=== PATIENT | male | born 1965 | race Caucasian/White ===

== ENCOUNTER 2023-07-30 22:36 | Observation (INO) | payer OTHER, SELFPAY ==
[2023-07-30 22:45] VITALS: BP 179/109; PULSE 81; RESP 16; TEMP 36.7; O2SAT 96; BMI 25.7
--- NOTE | 2023-07-30 22:54 | ED_ITS ---
HPI - Abdominal Pain General: Chief Complaint: Airway/Esophagus Foreign Body Stated Complaint: can't swallow Time Seen by Provider: 07/30/23 22:51 History of Present Illness: 58-year-old male patient comes in today with complaints of inability to swallow. About 5 hours prior to arrival to the ER patient was eating a piece of steak and it has felt like it has become lodged in his esophagus. Patient has a history of GERD, prior food boluses, and dilation of esophagus. Patient appears in no pain. Patient is managing secretions well. Patient states his only medication he takes routinely is omeprazole. Associated Symptoms: Reports other (Food bolus) Review of Systems GI: Reports: other (Food bolus) Physical Exam Const: COMMON NORMALS: alert HENMT: COMMON NORMALS: normocephalic HEAD & SCALP: normocephalic MOUTH: Normal oral and palatal mucosa present THROAT: posterior oropharynx normal Neck/C-Spine: COMMON NORMALS: full ROM Resp: COMMON NORMALS: normal respiratory effort and clear to auscultation bilaterally AUSCULTATION: clear to auscultation bilaterally Cardio: COMMON NORMALS: regular rate and regular rhythm RATE: regular rate RHYTHM: regular rhythm GI: COMMON NORMALS: Soft to palpation and non-tender PALPATION: Yes Soft to palpation Extremity: COMMON NORMALS: normal to inspection Neuro: SENSORIUM/ORIENTATION: Yes alert Skin: COMMON NORMALS: turgor normal GENERAL SKIN EXAM: turgor normal Course Vital Signs: Vital signs: Vital Signs Temperature 98.0 F 07/30/23 22:45 Pulse Rate 81 07/30/23 23:03 Respiratory Rate 16 07/30/23 23:03 Blood Pressure 144/106 07/30/23 23:03 Pulse Oximetry 97 07/30/23 23:03 Oxygen Delivery Me thod Room Air 07/30/23 23:03 MDM - Abdominal Pain Medical Decision Making 58-year-old male patient comes in today with complaints of food bolus. Approximately 5 hours prior to arrival to the ER patient was eating some steak and it became lodged in his esophagus. Patient has a history of repeated food boluses and esophageal dilation. Patient does take Meprazole routinely. Patient denies any other medical problems. Patient appears in no acute distress and is managing secretions well. Differential diagnosis includes food impaction, esophageal spasm, esophageal stricture, esophageal rupture. 2 view chest x-ray was unremarkable. Reviewed exam and patient with Dr. Barros, surgeon on-call he agreed to see patient in the morning request that we place patient in observation for until he can see him. Discussed this with Dr. Corbin, attending ER physician, who agreed to plan and treatment. Discharge Plan Discharge Patient Disposition: Placed in Observation Clinical Impression: Obstruction of esophagus due to food impaction Coding Level of Care Code ED Auto Damage Adjuster for Charan Bai
--- NOTE | 2023-07-30 22:59 | XRR_ITS ---
PROCEDURE INFORMATION: Exam: XR Chest Exam date and time: 07/30/2023 11:12 PM Age: 58 years old Clinical indication: Other: Food bolos, cant swallow; Additional info: Food bolus TECHNIQUE: Imaging protocol: Radiologic exam of the chest. Views: 2 views. COMPARISON: CR XR abdomen min 2V [id number] 02/09/2019 9:49 AM FINDINGS: Lungs: Unremarkable. No consolidation. Pleural spaces: Unremarkable. No pleural effusion. No pneumothorax. Heart/Mediastinum: Unremarkable. No cardiomegaly. Bones/joints: Unremarkable. XR/XR chest 2V* [id number] IMPRESSION: No acute findings.
[2023-07-30 23:03] VITALS: BP 144/106; PULSE 81; RESP 16; O2SAT 97
--- NOTE | 2023-07-30 23:06 | PC.NURSE ---
pt resting in room with at bedside. pt is in no acute distress at this time. pt currently does not complain of difficulty breathing, but does c/o difficulty swallowing. pt does have hx of esophageal spasms and is unsure if meat got stuck or if it is a spasm. suction at bedside and IV placed.
[2023-07-30] MEDS: sodium chloride 0.9% 1,000 ML 125 ML IV (23:54)
[2023-07-31] VITALS (14 sets, daily range): BP systolic 121–172; BP diastolic 22–106; PULSE 71–92; RESP 16–22; TEMP 36.1–36.4; O2SAT 90–97
[2023-07-31] MEDS: HYDROmorphone 1 mg/mL INJ 1 mL 0.5 MG IVP (08:20)
[2023-07-31] MEDS: sodium chloride 0.9% 1,000 ML 125 ML IV (08:47)
--- NOTE | 2023-07-31 11:10 | PM.HP ---
Providers/Chief Complaint Admitting Physician: Rolf Barros DO Primary Care Provider: Gee Goldsmith MD Chief Complaint: cant swollow History of Present Illness Albino Domingo is a 58 year old male with a history of multiple esophageal food impactions, presented to the hospital with a 1 day history of inability to swallow. He reported that he ate steak 5 hours prior to arrival to the hospital and has been unable to clear it. He denies any pain, nausea, emesis, diarrhea, constipation, hematochezia and/or melena. He is unable to swallow his saliva. Review of Systems General: Reports: 10 or more systems reviewed and unremarkable except in HPI and below Medications/Allergies Home Medications Medication Instructions Recorded Confirmed Last Taken Type eletriptan 40 mg tablet 40 mg PO BID PRN Migraine Headache 07/31/23 07/31/23 Unknown History omeprazole 20 mg capsule,delayed 20 mg PO DAILY 07/31/23 07/31/23 Unknown History release Allergies Allergy/AdvReac Type Severity Reaction Status Date / Time morphine Allergy ADR-Nausea Verified 07/30/23 22:45 Vitals/I&O/Wt Last Vital Signs Temp 97.5 F L 07/31/23 07:47 Pulse 74 07/31/23 07:47 Resp 18 07/31/23 08:20 BP 158/92 07/31/23 07:47 Pulse Ox 96 07/31/23 07:47 O2 Del Method Room Air 07/31/23 07:47 07/30/23 07/31/23 07/31/23 22:59 06:59 14:59 Intake Total 1000 / 1000 Balance 1000 / 1000 Weight last 48 hrs Weight 185 lb Physical Exam Narrative: General : Patient is well developed , no acute distress, oriented x3 Head : Normal cephalic, a-traumatic. Ears : Pinnae and external canal are normal. Hearing is normal. Eyes : PERRLA, Sclera and injection are normal. No conjunctival discharge. Nose : Mucous membranes are without erythema. Throat : buccal mucosa is normal, gums are without significant recession or hypertrophy. Lungs : Equal chest rise bilaterally, no use of accessory muscles, trachea is midline. Cor : Rate and rhythm are normal. Abdomen : Soft, ND, NT, no g/r/m Extremities : No edema, no cyanosis or clubbing, dorsalis pedis pulses are present bilaterally, non-tender to palpation of calves. Upper extremities are normal bilaterally. Back : non-tender to palpation, no CVA tenderness. Neuro : CN II - XII intact, Upper and lower extremities have equal and full strength A&P Assessment and plan (1) Obstruction of esophagus due to food impaction: Plan EGD The risks and benefits of the procedure, including bleeding, infection, intestinal perforation requiring surgery, missed lesion were explained to the patient. The patient is understanding of the risks and wishes to proceed. I will discharge him home after the procedure if I am able to successfully clear the impaction without complications Attestations Medical Necessity Statement*: Likely home after the procedure Coding Level of Care Code 27166 Diagnoses Obstruction of esophagus due to food impaction K22.2; T18.128A
[2023-07-31] MEDS: ondansetron 2 mg/ML SDV 2 mL 4 MG IVP (11:21)
--- NOTE | 2023-07-31 11:50 | ANES.PREANE2 ---
Pre-Anesthetic Assessment Height/Weight: Height 1.8 m Weight 83.915 kg Temp Pulse Resp BP Pulse Ox O2 Del Method 97.3 F L 75 16 161/91 95 Room Air 07/31/23 11:40 07/31/23 11:40 07/31/23 11:40 07/31/23 11:40 07/31/23 11:40 07/31/23 11:40 Preop Diagnosis: Food bolus Operation Date: 07/31/23 11:45 Proposed Procedures p EGD WITH POSS FOREIGN BODY REMOVAL(Not Applicable) - Rolf Barros DO Familial anesthetic complications: None Was Beta Kesha taken within 24 hours: N/A Was Clonidine taken within 24 hours: N/A Last Intake: 18:00 Social No alcohol and No tobacco Exam alert, oriented x 3, clear to auscultation bilaterally and regular rate & rhythm Airway Submandibular: within normal limits Cervical ROM: within normal limits Mallampati: Class II Dentition: chipped History/ROS No significant history except as noted and No significant complaints Pulmonary None reported CV/HEM Arrythmia (associated with migraines) None reported Hepatic None reported GI Gastroesophageal Reflux Disease Metabolic None reported Musc/skel None reported Neuropsych None reported Anesthetic Plan ASA status: 2 Anesthesia: Anesthesia Evaluation and General Risk of > 500 ml blood loss (7ml/kg in children): No Medications/Allergies Home Medications Medication Instructions Recorded Confirmed Last Taken Type eletriptan 40 mg tablet 40 mg PO BID PRN Migraine Headache 07/31/23 07/31/23 Unknown History omeprazole 20 mg capsule,delayed 20 mg PO DAILY 07/31/23 07/31/23 Unknown History release Allergies Allergy/AdvReac Type Severity Reaction Status Date / Time morphine Allergy ADR-Nausea Verified 07/30/23 22:45 Current Medications Generic Name Dose Route Start Last Admin Trade Name Freq PRN Reason Stop Dose Admin Hydromorphone HCl 0.5 mg 07/31/23 08:02 07/31/23 08:20 Hydromorphone 1 Mg/Ml Inj 1 Ml IVP 0.5 mg Q3H PRN Administration PAIN Sodium Chloride 1,000 mls @ 125 mls/hr 07/30/23 23:45 07/31/23 08:47 Sodium Chloride 0.9% IV 125 mls/hr .Q8H LIBBY Administration Ondansetron HCl 4 mg 07/30/23 23:34 07/31/23 11:21 Ondansetron 2 Mg/Ml Sdv 2 Ml IVP 4 mg Q6H PRN Administration nausea Data Anesthesia Cardiac Studies: No Data to Display
[2023-07-31] MEDS: sodium chloride 0.9% 1,000 ML 30 ML IV (11:56)
--- NOTE | 2023-07-31 13:30 | PM.DCS ---
Discharge Providers Date of Admission: 07/30/23 23:59 Date of Discharge: July 31, 2023 Attending Provider at Admission: Rolf Barros DO Attending Provider at Discharge: Rolf Barros DO Primary Care Provider: Gee Goldsmith MD Diagnoses at Discharge Discharge Diagnosis (1) Obstruction of esophagus due to food impaction: Status: Acute Reason for Visit Reason for Visit: [facility] Hospital Course Hospital Course This a very pleasant 58-year-old gentleman who presented to the hospital with an esophageal food impaction. He has had this happen 3 times in the past he was unable to swallow his saliva but this morning he started being able to swallow a little bit. He underwent EGD with clearance of soft real food impaction. He was discharged home in good condition and follow-up. Physical Exam Narrative: General : Patient is well developed , no acute distress, oriented x3 Head : Normal cephalic, a-traumatic. Ears : Pinnae and external canal are normal. Hearing is normal. Eyes : PERRLA, Sclera and injection are normal. No conjunctival discharge. Nose : Mucous membranes are without erythema. Throat : buccal mucosa is normal, gums are without significant recession or hypertrophy. Lungs : Equal chest rise bilaterally, no use of accessory muscles, trachea is midline. Cor : Rate and rhythm are normal. Abdomen : Soft, ND, NT, no g/r/m Extremities : No edema, no cyanosis or clubbing, dorsalis pedis pulses are present bilaterally, non-tender to palpation of calves. Upper extremities are normal bilaterally. Back : non-tender to palpation, no CVA tenderness. Neuro : CN II - XII intact, Upper and lower extremities have equal and full strength Discharge Data Studies Completed and Pending Completed Studies During Hospitalization Category Date Time Status XR chest 2V* [id number] Stat Exams 07/30/23 22:59 Completed Radiology Impressions Chest X-Ray 07/30/23 22:59 IMPRESSION: No acute findings. Procedures Performed EGD with clearance of esophageal food impaction Vitals Last Vital Signs Temp 97.3 F L 07/31/23 11:40 Pulse 75 07/31/23 11:40 Resp 16 07/31/23 11:40 BP 161/91 07/31/23 11:40 Pulse Ox 95 07/31/23 11:40 O2 Del Method Room Air 07/31/23 11:40 Discharge Plan Discharge Patient Disposition: Home Condition: Stable Prescriptions: New Protonix 40 mg tablet,delayed release (DR/EC) 40 mg PO BID 42 Days Qty: 84 0RF Continued eletriptan 40 mg tablet 40 mg PO BID PRN (Reason: Migraine Headache) Discontinued omeprazole 20 mg Capsule,Delayed Release(Dr/Ec) 20 mg PO DAILY Discharge Orders: Discharge Order (Routine); Ordered 07/31/23 Ordered By: Rolf Barors Referrals: Gee Goldsmith MD [Primary Care Provider] - 08/05/23 8:45 am Rolf Barros DO [Physician] - 2 weeks Discharge Diet: Advance as tolerated Discharge Activity: Resume usual activity Patient Instructions: GI Discharge Instructions, Opioid Safety, Pain Management Discharge Attestations Time Spent in Discharge Care*: less than 30 min Quality Metrics Clinical Quality Measures [ No reported AMI, CVA or VTE this stay] Coding Level of Care Code Acute Code for Chg Fwd Diagnoses Obstruction of esophagus due to food impaction K22.2; T18.128A
--- NOTE | 2023-07-31 14:00 | ANE.PACU2 ---
Inpatient post-anesthesia follow up: Airway intact: Yes Vital signs: Temperature 97.2 F Pulse Rate 88 Respiratory Rate 16 Blood Pressure 124/81 Pulse Oximetry 94 Oxygen Delivery Me thod Room Air Oxygen Flow Rate Fraction of Inspir ed Oxygen Hydration adequate: Yes Nausea and vomiting: No Pain level: 1 Mental status: Baseline
== END 2023-07-31 15:14 | disposition home or self-care (01) ==
LOC: ER 23:30 → MEDSURG 23:59
PROVIDERS: Admitting Provider Surgery; Emergency Provider Nurse Practitioner Family; PCP Family Medicine; Visit Provider Surgery
PROC: 0DJ08ZZ Inspection of Upper Intestinal Tract, Via Natural or Artificial Opening Endoscopic (ICD-10-PCS; CPT 43235; principal; 2023-07-31 11:45)
DX: T18.128A Food in esophagus causing other injury, initial encounter (principal); Y99.9 Unspecified external cause status; K22.2 Esophageal obstruction
CPT/HCPCS: 43247; 71046; 96374; 99285; G0378; J0330; J1100; J1170; J1200; J2405; J2704; J3010; J7030

== ENCOUNTER 2023-09-06 08:00 | Day surgery (SDC) | payer OTHER, SELFPAY ==
[2023-09-06 10:21] VITALS: BP 158/105; PULSE 77; RESP 18; TEMP 36.1; O2SAT 98
[2023-09-06] MEDS: sodium chloride 0.9% 1,000 ML 30 ML IV (10:30)
--- NOTE | 2023-09-06 11:06 | ANES.PREANE2 ---
Pre-Anesthetic Assessment Height/Weight: Height 1.8 m Weight 79.832 kg Temp Pulse Resp BP Pulse Ox O2 Del Method 97 F L 77 18 158/105 98 Room Air 09/06/23 10:21 09/06/23 10:21 09/06/23 10:21 09/06/23 10:21 09/06/23 10:21 09/06/23 10:21 Preop Diagnosis: Dysphagia Operation Date: 09/06/23 11:15 Proposed Procedures p 52748 egd w/ balloon dialation R13.10(Not Applicable) - Rolf Barros, DO Was Beta Kesha taken within 24 hours: N/A Was Clonidine taken within 24 hours: N/A Last intake: Intake Last Liquid Date 09/05/23 Last Liquid Time 20:00 Last Solid Date 09/05/23 Last Solid Time 18:00 Social No alcohol and No tobacco Exam alert, oriented x 3, clear to auscultation bilaterally and regular rate & rhythm Airway Submandibular: within normal limits Cervical ROM: within normal limits Mallampati: Class II Dentition: full History/ROS No significant history except as noted and No significant complaints Pulmonary None reported CV/HEM None reported None reported Hepatic None reported GI Gastroesophageal Reflux Disease Esophageal stricture Metabolic None reported Musc/skel None reported Neuropsych None reported Anesthetic Plan ASA status: 1 Anesthesia: Anesthesia Evaluation and MAC Risk of > 500 ml blood loss (7ml/kg in children): No Medications/Allergies Home Medications Medication Instructions Recorded Confirmed Last Taken Type eletriptan 40 mg tablet 40 mg PO BID PRN Migraine Headache 07/31/23 09/05/23 4 Weeks Ago History ~08/08/23 pantoprazole 40 mg tablet,delayed 40 mg PO BID 6 weeks #84 tabs 07/31/23 09/06/23 09/05/23 Rx release (Protonix) ibuprofen 200 mg tablet 600 mg PO Q6H PRN Pain 09/05/23 09/06/23 09/05/23 History Allergies Allergy/AdvReac Type Severity Reaction Status Date / Time morphine Allergy ADR-Nausea Verified 09/05/23 09:54 Current Medications Generic Name Dose Route Start Last Admin Trade Name Freq PRN Reason Stop Dose Admin Sodium Chloride 1,000 mls @ 30 mls/hr 09/06/23 09:00 09/06/23 10:30 Sodium Chloride 0.9% IV 09/07/23 08:59 30 mls/hr .Q24H LIBBY Administration PFSH Anesthesia Family History Mother Cancer colon Diabetes Social History Smoking and tobacco/nicotine status: never used tobacco/nicotine Alcohol intake: never Data Anesthesia Cardiac Studies: No Data to Display
--- NOTE | 2023-09-06 11:17 | W.PM.OPSUD ---
Surgery/Procedure H&P Update DATE OF PROCEDURE: September 06, 2023 DATE H&P PERFORMED: 08/13/23 H&P UPDATE INFORMATION: I have reviewed H&P completed within last 30 days, I have examined patient prior to procedure and No changes to prior documentation PREOP DIAGNOSIS: Dysphagia PLANNED PROCEDURE: Operation Date: 09/06/23 11:15 Pro[place] Procedures p 07393 egd w/ balloon dialation R13.10(Not Applicable) - Rolf Barros DO
[2023-09-06 12:14] VITALS: BP 155/94; PULSE 66; RESP 12; O2SAT 97
[2023-09-06 12:25] VITALS: BP 135/89; PULSE 72; RESP 14; O2SAT 97
[2023-09-06 12:30] VITALS: BP 132/90; PULSE 67; RESP 14; O2SAT 96
--- NOTE | 2023-09-06 13:54 | ANE.PACU2 ---
Inpatient post-anesthesia follow up: Airway intact: Yes Vital signs: Temperature 97 F Pulse Rate 67 Respiratory Rate 14 Blood Pressure 132/90 Pulse Oximetry 96 Oxygen Delivery Me thod Room Air Oxygen Flow Rate Fraction of Inspir ed Oxygen Hydration adequate: Yes Nausea and vomiting: No Pain level: 2 Mental status: Baseline
== END 2023-09-06 12:45 | disposition home or self-care (01) ==
PROVIDERS: PCP Family Medicine; Visit Provider Surgery
DX: R13.10 Dysphagia, unspecified (principal); K22.2 Esophageal obstruction; K44.9 Diaphragmatic hernia without obstruction or gangrene
CPT/HCPCS: 43239; 43249; 88305; 88342; J2704; J7030

== ENCOUNTER 2025-05-30 02:29 | Emergency (ER) | payer SELFPAY ==
--- OUTSIDE RECORDS SUMMARY | 2025-05-30 02:33 | XMS_ITS | Clinical Summary ---
Author Organization [facility] de Address [address] [place] [address] Phone Care Team Providers Care Senior Software Qa Analyst Name Role Phone Dain Alvarez Primary Care Provide r Allergies Active Allergy Reactions Criticality Noted Date Comments Morphine Nausea and Vomiting Low 04/21/2016 Medications metoclopramide (REGLAN) 10 mg Oral tablet Take 10 mg by mouth 4 times daily as needed. 03/22/2010 Active digoxin (LANOXIN) 250 mcg Oral tablet Take 250 mcg by mouth daily. Active magnesium oxide (MAG-OX) 400 mg Oral tablet 800 mg 2 times daily. 03/22/2010 Active ibuprofen (MOTRIN) 200 mg Oral Cap Take by mouth. Active pantoprazole (PROTONIX) 40 mg Tablet, Delayed Release (E.C.) Take 1 Tablet (40 mg) by mouth daily. 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 Gender Identity Not on file Sexual Orientation Not on file Last Filed Vital Signs Vital Sign Reading Time Taken Comments Blood Pressure 118/74 04/21/2016 8:15 PM CDT Pulse 81 04/21/2016 7:00 PM CDT Temperature 36.2 C (97.2 F) 04/21/2016 4:18 PM CDT Respiratory Rate 16 04/21/2016 8:15 PM CDT Oxygen Saturation 100% 04/21/2016 8:15 PM CDT Inhaled Oxygen Concentration - - Weight 82.6 kg (182 lb) 04/21/2016 6:42 PM CDT Height 182.9 cm (6') 04/21/2016 6:42 PM CDT Body Mass Index 24.68 04/21/2016 6:42 PM CDT Plan of Treatment Health Maintenance Due Date Last Done Comments DTAP/TDAP/TD VACCINES (1 - Tdap) 1986 HEPATITIS B VACCINES (1 of 3 - 19+ 3-dose series) 03/26 COLORECTAL SCREENING 2012 Colorectal Cancer Screening 2012 FIT-DNA Q 3 years 2012 FIT/FOBT Q 1 year 2012 Flex Sig/CT Colonography Q 5 years 2012 ZOSTER VACCINE (1 of 2) 2017 INFLUENZA VACCINE (#1) 2025 Advance Directives For more information, please contact: [phone] * Full Code (Latest Code Status on File) Date Activated Date Inactivated Comments 04/21/2016 6:59 PM 04/21/2016 11:00 PM * Full Code Date Activated Date Inactivated Comments 03/27/2010 2:55 PM 03/28/2010 2:32 AM Care Teams Senior Software Qa Analyst Relationship Specialty Start Date End Date Dain Alvarez DO [address] [id number] PCP - General Internal Medicine 04/21/16
--- OUTSIDE RECORDS SUMMARY | 2025-05-30 02:33 | XMS_ITS | Clinical Summary ---
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
[2025-05-30 02:41] VITALS: BP 161/106; PULSE 90; RESP 18; TEMP 36.6; O2SAT 98; BMI 25.7
[2025-05-30] MEDS: glucagon 1 mg/mL KIT 1 mL IVP (03:08)
--- NOTE | 2025-05-30 03:24 | PC.NURSE ---
after 2nd attempt of drinking coke patient able to tolerate and keep down coke. provider notified. pt in o obivous distress. pt VSS>
--- NOTE | 2025-05-30 03:36 | W.ED.SKABFB ---
HPI - Skin/Abscess/Foreign Bdy General: Chief complaint: Skin/Abscess/Foreign Body Stated complaint: esophageal spasms cant swollow, feels weak Time Seen by Provider: 05/30/25 02:49 History of Present Illness: 60-year-old male patient with a history of esophageal obstruction from food boluses, dilatation procedures, etc. He notes that he has been sick since Saturday night, after eating steak. He has not been able to hold down any food, and not been able to hold down much liquid at all. He presents with multiple episodes of vomiting, headache from being dehydrated , and feeling generally weak. He is having some epigastric discomfort. Related Data Home Medications ?Medication ?Instructions ?Recorded ?Confirmed eletriptan 40 mg tablet 40 mg PO BID PRN Migraine Headache 07/31/23 09/26/23 ibuprofen 200 mg tablet 600 mg PO Q6H PRN Pain 09/05/23 09/26/23 Allergies Allergy/AdvReac Type Severity Reaction Status Date / Time morphine Allergy ADR-Nausea Verified 09/26/23 07:58 PFS ED PFSH: Family History Mother Cancer colon Diabetes Social History Smoking and tobacco/nicotine status: never used tobacco/nicotine Alcohol intake: never Physical Exam Const: GENERAL APPEARANCE: cooperative and ill appearing (Mildly); not frail appearing HENMT: COMMON NORMALS: normocephalic, atraumatic and Normal external nose present HEAD & SCALP: normocephalic and atraumatic FACE & SINUS: normal facial exam and face symmetric NOSE: Normal external nose present Eye: COMMON NORMALS: Equal, round and reactive pupils present and EOMs intact bilaterally PUPIL: Yes Equal, round and reactive pupils present Neck/C-Spine: GENERAL: Yes trachea midline Chest: CHEST: Yes Symmetrical chest wall rise Resp: COMMON NORMALS: normal respiratory effort, No retractions, No use of accessory muscles and clear to auscultation bilaterally AUSCULTATION: clear to auscultation bilaterally Cardio: COMMON NORMALS: regular rate and regular rhythm RATE: regular rate RHYTHM: regular rhythm GI: COMMON NORMALS: Normal to inspection, nondistended, normoactive bowel sounds present PALPATION: Yes Tenderness to palpation present (GI) (Epigastric) Extremity: COMMON NORMALS: no pedal edema Neuro: TRELL COMA SCALE: document GCS findings [place] coma scale eye opening: Spontaneous [place] coma scale verbal response: Orientated [place] coma scale motor response: Obey commands [place] coma scale total score: 15 SENSORY EXAM: Yes extremities (intact) Psych: COMMON NORMALS: speech normal SPEECH: Yes normal speech Skin: COMMON NORMALS: no rashes or lesions noted GENERAL SKIN EXAM: no rashes or lesions noted Course Vital Signs: Vital signs: Vital Signs Temperature 98 F 05/30/25 02:41 Pulse Rate 88 05/30/25 05:34 Respiratory Rate 18 05/30/25 05:34 Blood Pressure 134/94 05/30/25 05:34 Pulse Oximetry 98 05/30/25 05:34 Oxygen Delivery Me thod Room Air 05/30/25 02:41 MDM - Skin/Abscess/Foreign Bdy Medicial Decision Making Patient was given sublingual nitroglycerin, 1 mg of glucagon IV, and 5 minutes later drank a Coca-Cola. He noted immediate relief. He is tolerating his own secretions currently. No pain currently. He is getting a fluid bolus. The patient continued to tolerate fluids in the ER without pain. Chest X-ray is clear. he'll be discharged home. to return for any worsening symptoms. Lab Data 05/30/25 03:49 05/30/25 03:49 Radiology Impressions Chest X-Ray 05/30/25 03:38 IMPRESSION: No visualized acute cardiopulmonary process. Laboratory Results WBC 6.61 10^3/uL (3.29-11.43) 05/30/25 03:49 RBC 4.97 10^6/uL (3.85-5.65) 05/30/25 03:49 Hgb 14.20 g/dL (11.27-16.99) 05/30/25 03:49 Hct 44.5 % (37-53) 05/30/25 03:49 MCV 89.5 fl (82-101) 05/30/25 03:49 MCH 28.6 pg (27-33) 05/30/25 03:49 MCHC 31.9 g/dL (30-55) 05/30/25 03:49 RDW 13.6 % (12.1-15.1) 05/30/25 03:49 Plt Count 231 10^3/cmm (157-399) 05/30/25 03:49 MPV 9.8 fL (7.4-10.4) 05/30/25 03:49 Neut % (Auto) 76.9 % 05/30/25 03:49 Lymph % (Auto) 11.3 % 05/30/25 03:49 [place] % (Auto) 6.8 % 05/30/25 03:49 Eos % (Auto) 4.2 % 05/30/25 03:49 Baso % (Auto) 0.2 % 05/30/25 03:49 Neut # (Auto) 5.08 10^3/uL (1.8-7.7) 05/30/25 03:49 Lymph # (Auto) 0.8 10^3/uL (0.8-4.8) 05/30/25 03:49 [place] # (Auto) 0.5 10^3/uL (0.2-0.9) 05/30/25 03:49 Eos # (Auto) 0.3 10^3/uL (0.0-0.8) 05/30/25 03:49 Baso # (Auto) 0.0 10^3/uL (0.0-0.1) 05/30/25 03:49 Nucleated RBC % (auto) 0 % 05/30/25 03:49 Nucleated RBCs # 0.0 /100WBC 05/30/25 03:49 Sodium 140 mmol/L (136-145) 05/30/25 03:49 Potassium 3.5 mmol/L (3.5-5.1) 05/30/25 03:49 Chloride 104 mmol/L (98-107) 05/30/25 03:49 Carbon Dioxide 26 mmol/L (22-29) 05/30/25 03:49 Anion Gap 13.5 (5-19) 05/30/25 03:49 BUN 13 mg/dL (6-20) 05/30/25 03:49 Creatinine 0.7 mg/dL (0.7-1.2) 05/30/25 03:49 GFR Calculation 115.8 mL/min (90-130) 05/30/25 03:49 Glucose 134 mg/dL (65-115) H 05/30/25 03:49 Calculated Osmolality 292 mOsm/kg (285-295) 05/30/25 03:49 Calcium 8.3 mg/dL (8.5-10.5) L 05/30/25 03:49 Total Bilirubin 0.5 mg/dL (0.15-1.2) 05/30/25 03:49 AST 15 U/L (0-40) 05/30/25 03:49 ALT 29 U/L (0-41) 05/30/25 03:49 Alkaline Phosphatase 63 U/L (40-130) 05/30/25 03:49 C-Reactive Protein 28.7 mg/L (0.0-4.9) H 05/30/25 03:49 Total Protein 6.4 g/dL (6.6-8.7) L 05/30/25 03:49 Albumin 3.4 g/dL (3.5-5.2) L 05/30/25 03:49 Globulin 3.0 g/dL (1.3-4.6) 05/30/25 03:49 Lipase 21 U/L (13-60) 05/30/25 03:49 All radiology interpretation(s) finalized by discharge Discharge Plan Discharge Patient Disposition: Home Clinical Impression: Esophageal obstruction due to food impaction Condition: Stable Prescriptions: No Action eletriptan 40 mg tablet 40 mg PO BID PRN (Reason: Migraine Headache) ibuprofen 200 mg Tablet 600 mg PO Q6H PRN (Reason: Pain) Discharge Orders: Discharge ED (Routine); Ordered 05/30/25 Ordered By: Willie Aguilar Referrals: Gee Goldsmith MD [Primary Care Provider, [facility]] - 1-3 days Patient Instructions: Esophageal Spasm (ED), Opioid Safety, Pain Management, Patient Portal & Danielle Instructions Activity Restrictions/Additional Instructions: Soft easy to swallow foods for the next 48 hours. Progress your diet accordingly following that if no problems. Drink plenty of liquids. Return for any development of chest or epigastric discomfort, vomiting, fever, trouble breathing, or other concerning symptoms. Print Language: Marshallese Coding Level of Care Code ED [employer]r for [employer]
--- NOTE | 2025-05-30 03:38 | XRR_ITS ---
PROCEDURE INFORMATION: Exam: XR Chest Exam date and time: 05/30/2025 3:38 AM Age: 60 years old Clinical indication: Other: Epigastric pain/food bolus; Patient has been unable to ingest any fluids since eating steak last night. Believes food stuck in lower esophagus. History of esophageal stricture. ; Additional info: Epigastric pain food bolus TECHNIQUE: Imaging protocol: Radiologic exam of the chest. Views: 1 view. COMPARISON: CR XR chest 2V* [id number] 07/30/2023 11:12 PM FINDINGS: Lungs: Unremarkable. No consolidation. Pleural spaces: Unremarkable. No pleural effusion. No pneumothorax. Heart/Mediastinum: Unremarkable. No cardiomegaly. Bones/joints: Unremarkable. XR/XR chest 1V portable [id number] IMPRESSION: No visualized acute cardiopulmonary process.
[2025-05-30 03:58] LABS: Hematocrit 44.5 % (37-53); Hemoglobin 14.20 g/dL (11.27-16.99); Mean Corpuscular HGB Conc 31.9 g/dL (30-55); Mean Corpuscular Hemoglobin 28.6 pg (27-33); Mean Corpuscular Volume 89.5 fl (82-101); Nucleated Red Blood Cells % 0 %; Platelet Count 231 10^3/cmm (157-399); Red Blood Count 4.97 10^6/uL (3.85-5.65); White Blood Count 6.61 10^3/uL (3.29-11.43)
[2025-05-30 04:19] LABS: Alanine Aminotransferase 29 U/L (0-41); Albumin Level 3.4 g/dL (3.5-5.2); Alkaline Phosphatase 63 U/L (40-130); Anion Gap 13.5 (5-19); Aspartate Amino Transferase 15 U/L (0-40); Blood Urea Nitrogen 13 mg/dL (6-20); Calcium 8.3 mg/dL (8.5-10.5); Carbon Dioxide 26 mmol/L (22-29); Chloride 104 mmol/L (98-107); Creatinine Clr Calc Pharmacy 128.1185; Globulin 3.0 g/dL (1.3-4.6); Glucose 134 mg/dL (65-115); Lipase 21 U/L (13-60); Osmolality Calculated 292 mOsm/kg (285-295); Potassium 3.5 mmol/L (3.5-5.1); Sodium 140 mmol/L (136-145); Total Protein 6.4 g/dL (6.6-8.7)
[2025-05-30 05:34] VITALS: BP 134/94; PULSE 88; RESP 18; O2SAT 98
== END 2025-05-30 05:36 | disposition home or self-care (01) ==
PROVIDERS: Emergency Provider Emergency Medicine; PCP Family Medicine
DX: K22.2 Esophageal obstruction (principal)
CPT/HCPCS: 36415; 71045; 80053; 83690; 85025; 86140; 96374; 99284; J1610; J7030; J9999